=== PATIENT | male | born 1965 | race Hispanic/Latino ===

== ENCOUNTER 2021-05-27 06:56 | Emergency (ER) | payer BC, OTHER ==
--- OUTSIDE RECORDS SUMMARY | 2021-05-27 06:59 | XMS REPORT | Continuity of Care Document ---
:1965 Author Organization [facility] t Address [address] [place] [address] Care Team Providers Name Role Phone Unavailable Unavailable Unavailable Problems This patient has no known problems. Allergies, Adverse Reactions, Alerts Allergy Allergy Status Severity Reaction(s) Onset Inactive Treating Comm ents Source Name Type Date Date Clinician penicill Adverse Active Info Not [facility] Medications Ordered Filled Start Stop Current Ordering Indication Dosage Frequency Signature Comments Components Source Medication Medication Date Date Medication? Clinician (SIG) Name Name MetFORMIN MetFORMIN 2019-0 Yes Rodrigo [address] [facility] HCl ER HCl ER 05-09 [facility] with [facility] - (MOD) (MOD) 00:00: evening [facility] atorvastati atorvastati 2019-0 Yes Rodrigo [address] [facility] n n 05-09 Parry by mouth [facility] - 00:[facility]: at bedtime [facility] GlipiZIDE GlipiZIDE 2019-0 Yes Rodrigo [address] [facility] 05-09 Parry 30 minutes [facility] - 00:[facility]: before [facility] 00 breakfast [facility] Losartan Losartan 2019-0 Yes Rodrigo [address] [facility] Potassium Potassium 05-09 [facility] Chantix Chantix 2019-0 Yes Rodrigo as [facility] 05-09 [facility]ry directed [facility] Victoza Victoza 2019-0 Yes Rodrigo 1.[address] 05-09 [facility] Procedures This patient has no known procedures. Encounters Start End Encounter Admission Attending Care Care Encounter Source Date/Time Date/Time Type Type Clinicians Facility Department ID 2019-09-28 2019-09-28 Outpatient Oumou Rondon [id number] [facility] 16:24:00 16:24:00 [facility] 2019-05-09 2019-05-09 Outpatient Oumou Rondon [id number] [facility] 15:00:00 15:00:00 t [facility] Results This patient has no known results.
--- NOTE | 2021-05-27 08:25 | RAD REPORT ---
EXAM DESCRIPTION: RAD - Chest Single View - 05/27/2021 8:15 am CLINICAL HISTORY: Cough;Congestion COMPARISON: No comparisons FINDINGS: Lines: None. Lungs: No evidence of edema or pneumonia. Pleural: No significant pleural effusions or pneumothorax. Cardiac: The heart size is within normal limits. Bones: No acute fractures. Other: IMPRESSION: No acute cardiopulmonary disease.
[2021-05-27 08:54] LABS: SARS-COV-2 RT PCR POSITIVE (NEGATIVE)
--- NOTE | 2021-05-27 09:01 | ER ---
Nurse's Notes [facility] Name: Tiago Partida Age: 56 yrs Sex: Male : 1965 Arrival Date: 05/27/2021 Time: 07:00 Bed 4 Private MD: Diagnosis: Cough;Nasal congestion;SARS-associated coronavirus as the cause of diseases classified elsewhere;Acute upper respiratory infection, unspecified Presentation: 05/27 07:11 Chief complaint: Patient states: "I went to [place] presently and was exposed to the jd3 weather. now I have this cold that I can't shake. I have this nagging cough and this headache.". Coronavirus screen: cough unrelated to allergies, difficulty breathing, fatigue, Client presents with at least one sign or symptom that may indicate coronavirus-19. Standard/surgical mask placed on the client. Provider contacted for isolation considerations. Ebola Screen: Patient negative for fever greater than or equal to 101.5 degrees Fahrenheit, and additional compatible Ebola Virus Disease symptoms. Initial Sepsis Screen: Does the patient meet any 2 criteria? No. Patient's initial sepsis screen is negative. Does the patient have a suspected source of infection? No. Patient's initial sepsis screen is negative. Risk Assessment: Do you want to hurt yourself or someone else? Patient reports no desire to harm self or others. Onset of symptoms was May 27, 2021. 07:11 Method Of Arrival: Ambulatory jd3 07:11 Acuity: MORENO 3 jd3 Triage Assessment: 07:15 General: Appears in no apparent distress. comfortable, Behavior is cooperative, bp appropriate for age, anxious. Pain: Denies pain. EENT: Reports nasal congestion. Neuro: No deficits noted. Cardiovascular: No deficits noted. Respiratory: Breath sounds are clear bilaterally. GI: No signs and/or symptoms were reported involving the gastrointestinal system. : No signs and/or symptoms were reported regarding the genitourinary system. Derm: No deficits noted. Musculoskeletal: No deficits noted. Historical: - Allergies: 07:12 PENICILLINS; jd3 - Home Meds: 07:12 losartan oral [Active]; atorvastatin oral [Active]; metformin Oral [Active]; jd3 - PMHx: 07:12 Hypertensive disorder; Diabetes mellitus; eye problems; jd3 - PSHx: 07:12 None; jd3 - Immunization history:: Adult Immunizations up to date, Client reports receiving the 2nd dose of the Covid vaccine. - Social history:: Smoking status: Patient denies any tobacco usage or history of. Screenin:15 Abuse screen: Denies threats or abuse. Denies injuries from another. Nutritional bp screening: No deficits noted. Tuberculosis screening: No symptoms or risk factors identified. Fall Risk None identified. Assessment: 07:15 General: SEE TRIAGE NOTE. Cardiovascular: Patient's skin is warm and dry. Respiratory: bp Airway is patent Respiratory effort is even, unlabored. Vital Signs: 07:15 BP 116 / 93; Pulse 108; Resp 18 S; Temp 97.2(TE); Pulse Ox 99% on R/A; Weight 104.33 kg jd3 (R); Height 5 ft. 8 in. (172.72 cm) (R); Pain 0/10; 07:15 Body Mass Index 34.97 (104.33 kg, 172.72 cm) jd3 ED Course: 07:00 Patient arrived in ED. ja 07:12 Triage completed. jd3 07:15 Arm band placed on. jd3 07:15 Patient has correct armband on for positive identification. Bed in low position. Call bp light in reach. Side rails up X2. 07:18 David Green MD is Attending Physician. kdr 07:33 Mu Krishnan, RN is Primary Nurse. bp 08:15 CXR XRAY In Process Unspecified. EDMS 09:18 No provider procedures requiring assistance completed. Patient did not have IV access ph during this emergency room visit. Administered Medications: No medications were administered Outcome: 09:00 Discharge ordered by . kdr 09:18 Discharged to home ambulatory. ph 09:18 Condition: good 09:18 Discharge instructions given to patient, Instructed on discharge instructions, follow up and referral plans. Demonstrated understanding of instructions, follow-up care. 09:18 Patient left the ED. ph Signatures: Dispatcher [employer] EDMS David Green MD MD kdr Chelsea Gutierrez RN RN ph Nestor Rojo RN RN Mu Li RN RN bp Alexander, Jessica ja2
--- NOTE | 2021-05-27 09:01 | EDPHYS ---
Physician Documentation [facility] Name: Tiago Partida Age: 56 yrs Sex: Male : 1965 Arrival Date: 05/27/2021 Time: 07:00 Bed 4 Private MD: ED Physician David Green HPI: 05/27 07:39 This 56 yrs old Male presents to ER via Ambulatory with complaints of Cough, kdr Congestion. 07:39 The patient or guardian reports cough, that is intermittent, described as mild, with kdr productive sputum, Brownish. Onset: The symptoms/episode began/occurred gradually, 10 day(s) ago. Severity of symptoms: At their worst the symptoms were mild, this morning, in the emergency department the symptoms are unchanged. Modifying factors: The symptoms are alleviated by. Associated signs and symptoms: Pertinent positives: Cough and congestion. The patient has not experienced similar symptoms in the past. The patient has not recently seen a physician. Historical: - Allergies: 07:12 PENICILLINS; jd3 - Home Meds: 07:12 losartan oral [Active]; atorvastatin oral [Active]; metformin Oral [Active]; jd3 - PMHx: 07:12 Hypertensive disorder; Diabetes mellitus; eye problems; jd3 - PSHx: 07:12 None; jd3 - Immunization history:: Adult Immunizations up to date, Client reports receiving the 2nd dose of the Covid vaccine. - Social history:: Smoking status: Patient denies any tobacco usage or history of. ROS: 07:39 Constitutional: Negative for fever, chills, and weight loss, Eyes: Negative for injury, kdr pain, redness, and discharge, Neck: Negative for injury, pain, and swelling, Cardiovascular: Negative for chest pain, palpitations, and edema, Abdomen/GI: Negative for abdominal pain, nausea, vomiting, diarrhea, and constipation, Back: Negative for injury and pain, : Negative for injury, bleeding, discharge, and swelling, MS/Extremity: Negative for injury and deformity, Skin: Negative for injury, rash, and discoloration, Neuro: Negative for headache, weakness, numbness, tingling, and seizure activity. Psych: Negative for depression, anxiety, suicide ideation, homicidal ideation, and hallucinations, Allergy/Immunology: Negative for hives, rash, and allergies, Endocrine: Negative for neck swelling, polydipsia, polyuria, polyphagia, and marked weight changes, Hematologic/Lymphatic: Negative for swollen nodes, abnormal bleeding, and unusual bruising. 07:39 Respiratory: Positive for cough, Brownish, Negative for dyspnea on exertion, hemoptysis, orthopnea, pleurisy, shortness of breath, sputum production, wheezing, acute changes. Exam: 07:39 Constitutional: This is a well developed, well nourished patient who is awake, alert, kdr and in no acute distress. Head/Face: Normocephalic, atraumatic. Eyes: Pupils equal round and reactive to light, extra-ocular motions intact. Lids and lashes normal. Conjunctiva and sclera are non-icteric and not injected. Cornea within normal limits. Periorbital areas with no swelling, redness, or edema. Neck: Trachea midline, no thyromegaly or masses palpated, and no cervical lymphadenopathy. Supple, full range of motion without nuchal rigidity, or vertebral point tenderness. No Meningismus. Chest/axilla: Normal chest wall appearance and motion. Nontender with no deformity. No lesions are appreciated. Abdomen/GI: Soft, non-tender, with normal bowel sounds. No distension or tympany. No guarding or rebound. No evidence of tenderness throughout. Back: No spinal tenderness. No costovertebral tenderness. Full range of motion. Skin: Warm, dry with normal turgor. Normal color with no rashes, no lesions, and no evidence of cellulitis. MS/ Extremity: Pulses equal, no cyanosis. Neurovascular intact. Full, normal range of motion. Neuro: Awake and alert, GCS 15, oriented to person, place, time, and situation. Cranial nerves II-XII grossly intact. Motor strength 5/5 in all extremities. Sensory grossly intact. Cerebellar exam normal. Normal gait. Psych: Awake, alert, with orientation to person, place and time. Behavior, mood, and affect are within normal limits. 07:39 Cardiovascular: Rate: tachycardic, actual rate is 108 bpm. 07:39 Respiratory: the patient does not display signs of respiratory distress, Respirations: normal, Breath sounds: rales, that are mild, are located in both bases, bronchial sounds, are not appreciated, decreased breath sounds, are not appreciated, rhonchi, are not appreciated, stridor, is not appreciated, wheezing: is not appreciated. Vital Signs: 07:15 BP 116 / 93; Pulse 108; Resp 18 S; Temp 97.2(TE); Pulse Ox 99% on R/A; Weight 104.33 kg jd3 (R); Height 5 ft. 8 in. (172.72 cm) (R); Pain 0/10; 07:15 Body Mass Index 34.97 (104.33 kg, 172.72 cm) jd3 MDM: 07:39 Data reviewed: vital signs, nurses notes, lab test result(s), radiologic studies. kdr 08:58 Response to treatment: There is no appreciated change of the patient's symptoms at this kdr time, The patient continues to be stable in the ED. He does not appear in any acute distress or in any way toxic at this time. Special discussion: Chest x-ray was negative but the Covid was positive. ED course: Patient was stable in the emergency department and appreciated the evaluation. He was discharged in stable condition and happy with the care provided the plan for discharge and follow-up. 09:00 Patient medically screened. kdr 05/27 07:18 Order name: COVID-19/FLU A+B (Document "Date of Onset" if Symptomatic); Complete Time: kdr 08:57 05/27 07:32 Order name: CXR XRAY; Complete Time: 08:51 kdr Administered Medications: No medications were administered Disposition Summary: 05/27/21 09:00 Discharge Ordered Location: Home kdr Problem: new kdr Symptoms: have improved kdr Condition: Stable kdr Diagnosis - Cough kdr - Nasal congestion kdr - SARS-associated coronavirus as the cause of diseases classified elsewhere kdr - Acute upper respiratory infection, unspecified kdr Followup: kdr - With: Private Physician - When: 2 - 3 days - Reason: If symptoms return, Further diagnostic work-up, Recheck today's complaints, Continuance of care, Re-evaluation by your physician Discharge Instructions: - Discharge Summary Sheet kdr - Viral Respiratory Infection, [id number] kdr - COVID-19 kdr - Things to Know about the COVID-19 Pandemic - [facility] kdr - 10 Things You Can Do to Manage Your COVID-19 Symptoms at Home - [facility] kdr - Viral Illness, Adult kdr - COVID-19: Quarantine vs. Isolation - [facility] kdr - Prevent the Spread of COVID-19 if You Are Sick - [facility] kdr Forms: - Medication Reconciliation Form kdr - Thank You Letter kdr Signatures: Dispatcher David Joe MD MD kdr Davies, Jonathon RN RN jd3
[2021-05-27 18:55] VITALS: BP 116/93; TEMP 97.2; O2SAT 99
== END 2021-05-27 09:18 | disposition home or self-care (01) ==
LOC: ER 06:56
DX: U07.1 COVID-19 (principal); J06.9 Acute upper respiratory infection, unspecified; R09.81 Nasal congestion; I10 Essential (primary) hypertension; E11.9 Type 2 diabetes mellitus without complications; Z88.0 Allergy status to penicillin
CPT/HCPCS: 0240U; 71045; 99283

== ENCOUNTER 2021-09-24 17:37 | Emergency (ER) | payer BC ==
--- OUTSIDE RECORDS SUMMARY | 2021-09-24 17:40 | XMS REPORT | Continuity of Care Document ---
:1965 Author Organization [facility] t Address [address] [place] [address] Care Team Providers Name Role Phone Rich Chambers Attending Clinician Unavailable Problems This patient has no known problems. Allergies, Adverse Reactions, Alerts Allergy Allergy Status Severity Reaction(s) Onset Inactive Treating Comm ents Source Name Type Date Date Clinician penicill Adverse Active Info Not Commo n in Reaction Available [facility] Medications Ordered Filled Start Stop Current Ordering Indication Dosage Frequency Signature Comments Components Source Medication Medication Date Date Medication? Clinician (SIG) Name Name Victoza Victoza 2020-0 Yes Rodrigo 1.2 mg Co mmon 05-09 Parry [facility] 00:00: - [facility] MetFORMIN MetFORMIN 2020-0 Yes Rodrigo 1 tablet [facility] HCl ER HCl ER 05-09 [facility]ry with [facility] (MOD) (MOD) 00:00: evening - meal [facility] atorvastati atorvastati 2020-0 Yes Rodrigo 1 tablet [facility] n n 05-09 Parry by mouth [facility] 00:00: at bedtime - [facility] GlipiZIDE GlipiZIDE 2020-0 Yes Rodrigo 1 tablet [facility] 05-09 Parry 30 minutes [facility] 00:00: before - breakfast [facility] Losartan Losartan 2020-0 Yes Rodrigo 1 tablet [facility] Potassium Potassium 05-09 Parry [facility] t 00:00: - [facility] Chantix Chantix 2020-0 Yes Rodrigo as Comm on 05-09 Parry directed [facility] 00:00: - [facility] Procedures This patient has no known procedures. Encounters Start End Encounter Admission Attending Care Care Encounter Source Date/Time Date/Time Type Type Clinicians Facility Department ID 2021-05-29 Outpatient GLEN Chambers SOFIE [id number] [facility] 10:59:24 Rich [id number] [facility] - [facility] 2019-09-28 2019-09-28 Outpatient Oumou Rondon [id number] [facility] 16:24:00 16:24:00 t [facility] 2019-05-09 2019-05-09 Outpatient Oumou Rondon [id number] [facility] 15:00:00 15:00:00 t [facility] t and [facility] Results This patient has no known results.
--- NOTE | 2021-09-24 19:37 | RAD REPORT ---
EXAM DESCRIPTION: RAD - Chest Single View - 09/24/2021 7:30 pm CLINICAL HISTORY: PAINright-sided chest COMPARISON: Portable 05/27/2021 TECHNIQUE: AP portable chest image was obtained 09/24/2021 7:30 pm . FINDINGS: Lung volumes are low. No peripheral mass or consolidation. Significant failure or volume o verload are not suspected. Interstitial pattern matches comparison. Heart and vasculature are normal. No measurable pleural effusion and no pneumothorax. No acute bony abnormality seen. No acute aortic findings suspected. IMPRESSION: No acute cardiopulmonary process.
[2021-09-24] MEDS ORDERED: LIDOCAINE 4% PATCH ONE (20:04)
--- NOTE | 2021-09-24 20:26 | EDPHYS ---
Physician Documentation [facility] Name: Tiago Partida Age: 56 yrs Sex: Male : 1965 Arrival Date: 09/24/2021 Time: 17:40 Bed 10 Private MD: Rich Chambers ED Physician David Green HPI: 09/24 19:58 This 56 yrs old Male presents to ER via Ambulatory with complaints of Rib Pain.pm1 19:58 Onset: The symptoms/episode began/occurred 2 week(s) ago. Associated signs and pm1 symptoms: The patient has no apparent associated signs or symptoms. Modifying factors: the patient symptoms are aggravated by movement, And palpation. The patient has not experienced similar symptoms in the past. The patient has not recently seen a physician. Patient was reaching over his truck bed with his right arm and hurt his rib as he was leaning against the truck bed railing. Patient reports continuation and pain for the past 2 weeks. Negative for shortness of breath and cough. Pain reproduced with movement of his arm and palpation. Historical: - Allergies: 18:28 PENICILLINS; aa5 - PMHx: 18:28 diabetes mellitus; eye problems; Hypertensive disorder; Diverticulitis; macular aa5 degeneration; Glaucoma; - Immunization history:: Adult Immunizations up to date. - Social history:: Smoking status: Patient denies any tobacco usage or history of. ROS: 19:58 Constitutional: Negative for fever, chills, and weight loss, Cardiovascular: Negative pm1 for chest pain, palpitations, and edema, Respiratory: Negative for shortness of breath, cough, wheezing, and pleuritic chest pain, Abdomen/GI: Negative for abdominal pain, nausea, vomiting, diarrhea, and constipation, Back: Negative for injury and pain, MS/Extremity: Negative for injury and deformity, Skin: Negative for injury, rash, and discoloration, Neuro: Negative for headache, weakness, numbness, tingling, and seizure. 19:58 All other systems are negative. Exam: 19:58 Constitutional: This is a well developed, well nourished patient who is awake, alert, pm1 and in no acute distress. Head/Face: Normocephalic, atraumatic. 19:58 Skin: Warm, dry with normal turgor. Normal color with no rashes, no lesions, and no evidence of cellulitis. MS/ Extremity: Pulses equal, no cyanosis. Neurovascular intact. Full, normal range of motion. 19:58 Chest/axilla: Inspection: normal, Palpation: tenderness, of the right breast, that totally reproduces the patient's complaints. 19:58 Cardiovascular: Exam negative for acute changes, Rate: normal, Rhythm: regular, Pulses: no pulse deficits are appreciated. 19:58 Respiratory: Exam negative for acute changes, respiratory distress, shortness of breath. 19:58 Abdomen/GI: Inspection: abdomen appears normal, Palpation: abdomen is soft and non-tender, in all quadrants. 19:58 Neuro: Exam negative for acute changes, Orientation: is normal, Mentation: is normal, Motor: is normal, moves all fours. Vital Signs: 18:26 BP 124 / 77; Pulse 88; Resp 18 S; Temp 98.9(O); Pulse Ox 99% on R/A; Weight 97.52 kg aa5 (R); Height 5 ft. 8 in. (172.72 cm) (R); Pain 5/10; 18:26 Body Mass Index 32.69 (97.52 kg, 172.72 cm) aa5 MDM: 19:58 Patient medically screened. pm1 20:24 Data reviewed: vital signs. Data interpreted: Pulse oximetry: on room air is 99 %. pm1 Interpretation: normal. Counseling: I had a detailed discussion with the patient and/or guardian regarding: the historical points, exam findings, and any diagnostic results supporting the discharge/admit diagnosis, radiology results, the need for outpatient follow up, to return to the emergency department if symptoms worsen or persist or if there are any questions or concerns that arise at home. 09/24 18:29 Order name: Chest Single View XRAY; Complete Time: 19:49 aa5 Administered Medications: 20:09 Drug: Lidoderm Patch 5 % (700 mg/patch) 1 patches Route: Topical; Site: affected area; jb4 20:36 Follow up: Response: No adverse reaction tw5 Disposition: 21:01 Co-signature as Attending Physician, David Green MD I agree with the assessment and kdr plan of care. Disposition Summary: 09/24/21 20:25 Discharge Ordered Location: Home pm1 Problem: new pm1 Symptoms: have improved pm1 Condition: Stable pm1 Diagnosis - Strain of muscle and tendon of front wall of thorax pm1 Followup: pm1 - With: Emergency Department - When: As needed - Reason: Worsening of condition Followup: pm1 - With: Private Physician - When: 2 - 3 days - Reason: Recheck today's complaints, Continuance of care, Re-evaluation by your physician Discharge Instructions: - Discharge Summary Sheet pm1 - Muscle Strain pm1 Forms: - Medication Reconciliation Form pm1 - Thank You Letter pm1 - Antibiotic Education pm1 - Prescription Opioid Use pm1 Prescriptions: - Lidoderm 5 % Topical adhesive patch,medicated - apply 1 patch by TRANSDERMAL route once daily As needed 12 hours on and 12 pm1 hours off in a 24 hour period; 10 patch; Refills: 0, Product Selection Permitted - Cyclobenzaprine 10 mg Oral Tablet - take 1 tablet by ORAL route every 8 hours As needed; 30 tablet; Refills: 0, pm1 Product Selection Permitted - Diclofenac Sodium 75 mg Oral tablet,delayed release (DR/EC) - take 1 tablet by ORAL route 2 times per day As needed; 30 tablet; Refills: 0, pm1 Product Selection Permitted Signatures: Dispatcher [employer] EDMS David Green MD MD [facility] Taina Gunter RN RN aa5 Chase Porter, LEON[employer] BUSINESS INTEGRATION ANALYST pm1 Kve Amador RN RN jb4 Megha Oviedo tw5
--- NOTE | 2021-09-24 20:26 | ER ---
Nurse's Notes [facility] Name: Tiago Partida Age: 56 yrs Sex: Male : 1965 Arrival Date: 09/24/2021 Time: 17:40 Bed 10 Private MD: Rich Chambers Diagnosis: Strain of muscle and tendon of front wall of thorax Presentation: 09/24 18:26 Chief complaint: Patient states: "I went camping and I over reached over the bed of my [employer] and I am hurting and it's been 2 weeks". pt c/o pain to right side of chest. Coronavirus screen: At this time, the client does not indicate any symptoms associated with coronavirus-19. Ebola Screen: No symptoms or risks identified at this time. Initial Sepsis Screen: Does the patient meet any 2 criteria? No. Patient's initial sepsis screen is negative. Does the patient have a suspected source of infection? No. Patient's initial sepsis screen is negative. Risk Assessment: Do you want to hurt yourself or someone else? Patient reports no desire to harm self or others. Onset of symptoms was September 2021. 18:26 Acuity: MORENO 4 aa5 18:26 Method Of Arrival: Ambulatory aa5 Historical: - Allergies: 18:28 PENICILLINS; aa5 - PMHx: 18:28 diabetes mellitus; eye problems; Hypertensive disorder; Diverticulitis; macular aa5 degeneration; Glaucoma; - Immunization history:: Adult Immunizations up to date. - Social history:: Smoking status: Patient denies any tobacco usage or history of. Screenin:36 Abuse screen: Denies threats or abuse. Denies injuries from another. Nutritional tw5 screening: No deficits noted. Tuberculosis screening: No symptoms or risk factors identified. Fall Risk None identified. Assessment: 18:00 General: Appears in no apparent distress. uncomfortable, Behavior is calm, cooperative, jb4 appropriate for age. Pain: Complains of pain in right ribs Pain does not radiate. Pain currently is 5 out of 10 on a pain scale. Neuro: Level of Consciousness is awake, alert, obeys commands, Oriented to person, place, time, situation. Cardiovascular: Patient's skin is warm and dry. Respiratory: Airway is patent Respiratory effort is even, unlabored, Respiratory pattern is regular, symmetrical. GI: No signs and/or symptoms were reported involving the gastrointestinal system. : No signs and/or symptoms were reported regarding the genitourinary system. EENT: No signs and/or symptoms were reported regarding the EENT system. Derm: Skin is intact, Skin is pink, warm \\T\\ dry. 20:35 Reassessment: Patient states feeling better. tw5 Vital Signs: 18:26 BP 124 / 77; Pulse 88; Resp 18 S; Temp 98.9(O); Pulse Ox 99% on R/A; Weight 97.52 kg aa5 (R); Height 5 ft. 8 in. (172.72 cm) (R); Pain 5/10; 18:26 Body Mass Index 32.69 (97.52 kg, 172.72 cm) aa5 ED Course: 17:40 Patient arrived in ED. mr 17:40 Rich Chambers MD is Private Physician. mr 18:26 Arm band placed on. aa5 18:28 Triage completed. aa5 19:09 [facility] pm1 19:09 David Green MD is Attending Physician. pm1 19:32 Chest Single View XRAY In Process Unspecified. EDMS 19:56 Kev Amador RN is Primary Nurse. jb4 20:36 Patient has correct armband on for positive identification. tw5 20:36 No provider procedures requiring assistance completed. Patient did not have IV access tw5 during this emergency room visit. Administered Medications: 20:09 Drug: Lidoderm Patch 5 % (700 mg/patch) 1 patches Route: Topical; Site: affected area; jb4 20:36 Follow up: Response: No adverse reaction tw5 Medication: 20:36 VIS not applicable for this client. tw5 Outcome: 20:25 Discharge ordered by MD. pm1 20:36 Discharged to home ambulatory. tw5 20:36 Condition: good 20:36 Discharge instructions given to patient, Instructed on discharge instructions, follow up and referral plans. medication usage, Demonstrated understanding of instructions, follow-up care, medications, Prescriptions given X 3. 20:36 Patient left the ED. tw5 Signatures: Dispatcher [facility] Orlando[facility]ney Audri, RN RN aa5 Chase Porter, [employer] pm1 Kev Amador RN RN jb4 Megha O[place]ied[place] tw5 Corrections: (The following items were deleted from the chart) 18:30 18:26 Pain 09/10; aa5 aa5
[2021-09-24 21:06] VITALS: BP 124/77; TEMP 98.9; O2SAT 99
== END 2021-09-24 20:36 | disposition home or self-care (01) ==
LOC: ER 17:37
DX: S29.011A Strain of muscle and tendon of front wall of thorax, initial encounter (principal); E11.9 Type 2 diabetes mellitus without complications; I10 Essential (primary) hypertension; Z88.0 Allergy status to penicillin
CPT/HCPCS: 71045; 99283; J2001